=== PATIENT | male | born 1940 | race Caucasian/White ===

== ENCOUNTER 2020-04-10 04:00 | Inpatient (IN) | payer OTHER, BC, SELFPAY ==
[~2020-04-10] VITALS: Ht 170.2 cm; Wt 108.9 kg
[2020-04-10 04:12] VITALS: BP 132/74
--- NOTE | 2020-04-10 04:20 | NUR ---
79 Y/O M BIBA C/O SOB X 1 WEEK. RESPIRATIONS LABORED, PT ON 2L NC, 02 SAT 98%. PT STATES HE RECENTLY FELL X 3 DAYS AGO AND C/O 5/10 LEFT RIB PAIN. PT DENIES LOC, OR HITTING HEAD. LUNG SOUNDS DIMINISHED ALTHROUGHOUT. PT PRESENTS WITH MULTIPLE BRUISES ON UPPER AND LOWER EXTREMITIES. CAP REFILL <3 SECONDS. PT ALSO PRESENTS WITH NON-PITTING EDEMA ON UPPER EXTREMITIES. PT HAS 20G ON THE RAC PLACED BY EMS EN ROUTE. PT PLACED ON EMERGENCY VETERINARIAN. BED IN LOWEST POSITION, SIDE RAIL UP X 2. WILL CONTINUE TO MONITOR. MHX: CHF, COPD, DIABETES, CANCER, AFIB ALLERGIES: PCN, CODEINE, ZOFRAN
--- NOTE | 2020-04-10 04:25 | NUR ---
LABS AND BLOOD CULTURES OBTAINED AND WALKED OVER TO LAB.
[2020-04-10] MEDS ORDERED: NITROGLYCERIN 2% 1 GM PKT TP ONE (04:30)
[2020-04-10] MEDS ORDERED: FUROSEMIDE 40 MG/4 ML VIAL IVP ONE (04:30)
[2020-04-10] MEDS ORDERED: GLIP5TAB4 PO (04:32)
[2020-04-10] MEDS ORDERED: TAMS0.4C96 PO (04:32)
[2020-04-10] MEDS ORDERED: ACAL100C PO (04:32)
[2020-04-10] MEDS ORDERED: FURO-570 PO (04:32)
[2020-04-10] MEDS ORDERED: AMLO5TAB PO (04:32)
[2020-04-10] MEDS ORDERED: TRAV5SOL OP (04:32)
[2020-04-10] MEDS ORDERED: FLUT1BLS3 IH (04:32)
[2020-04-10] MEDS ORDERED: INSU100I7 SQ (04:32)
[2020-04-10] MEDS ORDERED: METO50TE2 PO (04:32)
--- NOTE | 2020-04-10 04:49 | NUR ---
G COMPLETED AND RESULTS REPORTED TO DR WONG PH 7.398 CO2 29.0 HCO3 17.5 BE -6.5 ON 3LNC
--- NOTE | 2020-04-10 04:51 | NUR ---
RAD AT BEDSIDE.
--- NOTE | 2020-04-10 05:24 | NUR ---
LAB CALLED FOR FOLLOW UP BLOOD RESULT.
[2020-04-10 05:33] LABS: BASOPHILS # (AUTO) 0.1 K/uL (0.00-0.22); BASOPHILS % (AUTO) 0.9 % (0.0-2.0); EOSINOPHILS # (AUTO) 0.2 K/uL (0-0.4); EOSINOPHILS % (AUTO) 2.4 % (0.0-4.0); HEMATOCRIT 23.9 % (36-52); HEMOGLOBIN 7.8 g/dL (12.0-18.0); LYMPHOCYTES # (AUTO) 3.3 K/uL (2.0-11.5); LYMPHOCYTES % (AUTO) 45.2 % (20.5-51.1); MEAN CORPUSCULAR HEMOGLOBIN 30 pg (27-31); MEAN CORPUSCULAR HGB CONC 33 g/dL (33-37); MEAN CORPUSCULAR VOLUME 93.8 fL (80-94); MONOCYTES # (AUTO) 0.6 K/uL (0.8-1.0); MONOCYTES % (AUTO) 7.6 % (1.7-9.3); NEUTROPHILS # (AUTO) 3.2 K/uL (1.8-7.7); NEUTROPHILS % (AUTO) 43.9 % (42.2-75.2); PLATELET COUNT (AUTO) 88 K/uL (140-450); RED BLOOD CELL COUNT(AUTO) 2.55 MIL/uL (4.20-6.10); RED CELL DISTRIBUTION WIDTH 17.4 % (11.6-13.7); WHITE BLOOD COUNT (AUTO) 7.4 K/uL (4.8-10.8)
--- NOTE | 2020-04-10 05:39 | NUR ---
UA OBTAINED THROUGH STRAIGHT CATH AND WALKED OVER TO LAB.
--- NOTE | 2020-04-10 05:40 | NUR ---
PT SITTING UPRIGHT IN BED, CONNECTED TO HOME DEPOT REP AT BEDSIDE. NO NEW C/O. PT O2 SAT AT 99% ON 2L NC. BED IN LOWEST POSITION, SIDE RAIL UP X2. WILL CONTINUE TO MONITOR.
[2020-04-10 05:48] LABS: PROTHROMBIN TIME 11.8 secs (10.8-13.4)
[2020-04-10 05:52] LABS: ALBUMIN 2.8 g/dL (3.4-5.0); ANION GAP 18.7 (8-16); ASPARTATE AMINOTRANSFERASE 17 U/L (15-37); CARBON DIOXIDE 21.8 mmol/L (21-32); CHLORIDE 99 mmol/L (98-107); GLUCOSE 183 mg/dL (74-106); POTASSIUM 4.5 mmol/L (3.5-5.1); SODIUM SERUM 135 mmol/L (136-145)
[2020-04-10 06:00] LABS: CREATININE 5.5 mg/dL (0.6-1.3); UREA NITROGEN, BLOOD 146 mg/dL (7-18)
--- NOTE | 2020-04-10 06:01 | NUR ---
RECEIVED CRITICAL REPORT FROM LAB, [facility], OF PT'S BUN [address] WONG MADE AWARE. PHYSICIAN TO SEE PT.
[2020-04-10] MEDS ORDERED: ASPIRIN 81 MG TAB.CHEW PO ONE (06:05)
--- NOTE | 2020-04-10 06:05 | NUR ---
RECEIVED CRITICAL LAB REPORT FROM [facility] ON PT'S TROPONIN 0.105. DR. WONG MADE AWARE. DR. WONG TO SEE PATIENT.
[2020-04-10] MEDS ORDERED: NITROGLYCERIN 0.4 MG TAB SL PRN (06:15)
[2020-04-10] MEDS: NACL 0.9% 1,000 ML IV SCH (06:15)
[2020-04-10] MEDS ORDERED: ONDANSETRON 4 MG/2 ML VIAL IM/IVP PRN (06:15)
[2020-04-10] MEDS ORDERED: BISACODYL 10 MG SUPP RC PRN (06:15)
[2020-04-10] MEDS ORDERED: ACETAMINOPHEN 325 MG TAB PO PRN (06:15)
[2020-04-10 06:22] LABS: BILIRUBIN,URINE NEGATIVE (NEGATIVE); BLOOD, URINE 1+ (NEGATIVE); COLOR,URINE YELLOW (YELLOW); LEUKOCYTE ESTERASE ,URINE NEGATIVE (NEGATIVE); NITRITE, URINE NEGATIVE (NEGATIVE); UGLUCOSE NEGATIVE (NEGATIVE)
--- NOTE | 2020-04-10 07:00 | NUR ---
COVID SWAB OBTAINED AND WALKED OVER TO LAB.
[2020-04-10] MEDS ORDERED: BISACODYL 10 MG SUPP RC SCH (07:15)
--- NOTE | 2020-04-10 07:22 | NUR ---
HOWARD PTS CALLED, INFORMED HER THAT PT WILL BE ADMITTED TO [facility] FLOOR, ROOM NUMBER [id number]
--- NOTE | 2020-04-10 07:37 | NUR ---
PT DENIES PAIN AT THIS TIME. STATES HE STILL FEELS SOB. PT CURRENTLY ON 2 L NC AT 98%
[2020-04-10 07:39] LABS: RBC,URINE 0-5 /HPF (0-5); URINE AMORPHOUS URATE 1+ /HPF (None Seen); WBC,URINE 0-5 /HPF (0-5)
[2020-04-10 07:40] LABS: APPEARANCE,URINE SLIGHTLY HAZY (CLEAR)
[2020-04-10 07:57] LABS: FREE T4 (FREE THYROXINE) 1.28 ng/dL (0.76-1.46); MAGNESIUM 2.5 mg/dL (1.8-2.4); PHOSPHORUS 3.6 mg/dL (2.5-4.9); THYROID STIMULATING HORMONE 4.19 uIU/mL (0.34-3.74)
[2020-04-10] MEDS ORDERED: DEXTROSE 50% 50 ML SYR IVP PRN (08:05)
[2020-04-10] MEDS ORDERED: METOCLOPRAMIDE 10 MG/2 ML INJ VIAL IVP PRN (08:05)
[2020-04-10] MEDS ORDERED: traMADol 50 MG TAB PO PRN (08:05)
[2020-04-10] MEDS ORDERED: PROCHLORPERAZINE 5 MG TAB PO PRN (08:05)
--- NOTE | 2020-04-10 08:15 | NUR ---
RECEIVED REPORT FROM ER NURSE RAYMOND. PT IN STABLE CONDITION ON 2L 02 VIA NC. RESPIRATIONS EVEN AND UNLABORED. COMPLAINING OF SOB. DENIES PAIN. IV SITE INTACT. PATIENT IS CONTINENT AND USES URINAL, IS A GOOD HISTORIAN AND KNOWS HIS PAST HISTORY. SKIN IS INTACT, WITH SMALL SCAB ON ARM, COVERED WITH BANDAID BY ER NURSE. VITAL SIGNS ARE STABLE. SAFETY MEASURES IN PLACE, BED IN LOWEST POSITION, CALL LIGHT WITHIN REACH. WILL CONTINUE TO MONITOR.
--- NOTE | 2020-04-10 08:20 | NUR ---
[facility]. Admited to TELE. Will go to room 126B. Belongings list completed. Report to JUAN ANTONIO JIMENEZ.
[2020-04-10] MEDS ORDERED: DULA1.5S SC (08:36)
[2020-04-10] MEDS ORDERED: COM5 PO (08:36)
[2020-04-10] MEDS ORDERED: TRAM50TA1 PO (08:36)
[2020-04-10] MEDS ORDERED: METO50TA21 PO (08:36)
[2020-04-10] MEDS ORDERED: ALBU0.0912 IH (08:36)
[2020-04-10] MEDS ORDERED: ZAR2.5 PO (08:36)
[2020-04-10] MEDS ORDERED: ACALABRUTINIB 100 MG PO SCH (09:00)
[2020-04-10] MEDS ORDERED: NON-FORMULARY ITEM (Fluticasone/Umeclidin/Vilanter (Trelegy Ellipta 100-62.5-25) 1 EACH) IH SCH (09:00)
--- NOTE | 2020-04-10 09:30 | NUR ---
SCHEDULED MEDICATIONS ADMINISTERED. PT TOLERATED WELL. WILL CONTINUE TO MONITOR
--- NOTE | 2020-04-10 10:05 | NUR ---
CHECKED ON PT. CURRENTLY ON 3L NC SPO2 97% HR 109. INCENTIVE SPIROMETER INSTRUCTED, PT UNDERSTANDS EXERCISE. PLACED BIPAP AT BEDSIDE FOR SOB. WILL CONTINUE TO MONITOR.
[2020-04-10] MEDS: TAMSULOSIN 0.4 MG CAP PO SCH (10:19)
[2020-04-10] MEDS: DOCUSATE SODIUM 100 MG GELCAP PO SCH ×2 (10:19→21:00)
[2020-04-10] MEDS: METOPROLOL 50 MG TAB PO SCH ×2 (10:20→21:00)
[2020-04-10] MEDS: amLODIPine 5 MG TAB PO SCH (10:20)
[2020-04-10] MEDS ORDERED: AZITHROMYCIN 250 MG TAB PO SCH (11:00)
--- NOTE | 2020-04-10 11:00 | NUR ---
PT PLACED ON BIPAP, BREATHING IS BETTER AND REPORTS LESS SOB. EFFORT MINIMIZED. 02 SAT 99%. WILL CONTINUE TO MONITOR
--- NOTE | 2020-04-10 11:10 | NUR ---
PLACED PT ON BIPAP AND ADMINISTERED MDI TX AT THIS TIME. BIPAP SETTINGS 12/5, 14RR, Ti 1.0, 32%. VENT SETTINGS PER DR. PRITCHETT, TITRATE NECESSARY TO ACHIEVE ADEQUATE VOLUMES. PT RECEIVING ADEQUATE VOLUMES AND ADEQUATE OXYGENATION. NO DISTRESS NOTED AT THIS TIME. BIPAP IS PLUGGED INTO RED OUTLET, ALARMS ARE ON AND FUNCTIONING. WILL CONTINUE TO MONITOR.
[2020-04-10] MEDS: ALBUTEROL HFA MDI 90 MCG/ACTUATION 8 GM INH PRN (11:11)
[2020-04-10] MEDS: BLOOD GLUCOSE MONITORING 1 DEV DEV FS SCH ×3 (11:30→21:00)
[2020-04-10 12:00] VITALS: BP 112/70
--- NOTE | 2020-04-10 12:30 | NUR ---
SCHEDULED MEDICATIONS ADMINISTERED. PT TOLERATED WELL. WILL CONTINUE TO MONITOR
--- NOTE | 2020-04-10 13:40 | NUR ---
DISCHARGE PLANNING: THIS IS A 79 Y/O MALE PATIENT FROM HOME, WHO WAS BIBA DUE TO SOB. PAST MEDICAL HISTORY INCLUDE MYELODYSPLASTIC ANEMIA, MANTLE CELL NON HODGKIN'S LYMPHOMA, COPD, CHF, DIABETES AND BASAL CELL CA. INITIAL DIAGNOSIS OF CHF AND ELEVATED TROPONIN. CURRENT LABS INCLUDE WBC 7.4, H/H 7.8/23.9, NA/K 135/4.5, BUN/CREA 146/5.5, ALB 2.8, TROP 1.105, BNP 2310. COVID PENDING. URNIE AND BLOOD CS PENDING. ON AZITHROMYCIN AND ROCEPHIN. CXR ON ADMISSION SHOWED MILD PULMONARY VASCULAR CONGESTION AND SMALL BILATERAL PLEURAL EFFUSIONS, BILATERAL LOWER LOBE INFILTRATES/ATELECTASIS. CHELSEA, NEPHRO, CARDIO AND PULMO CONSULTS IN PLACE. ON O2 AT 3 LPM/NC. DC PLAN PENDING ON PATIENT'S RESPONSE TO TREATMENT. Addendum: 04/12/20 at 1101 by Marline Ochoa CM DISCUSSED DURING BED HUDDLE. DC PLAN IF FOR WEDNESDAY TO [facility] PER 'S REQUEST. Addendum: 04/12/20 at 1143 by Marline Ochoa CM CONTACTED PATIENT'S HOWARD OSBORNE AT [phone] TO DISCUSS DC PLANNING AND IS IN AGREEMENT. SHE STATED DR. BLACKWELL SPOKE TO HER AND PLAN IS FOR EITHER WEDNESDAY OR WEDNESDAY. PER HOWARD SHE PREFERS [facility]. IMM LETTER DISCUSSED WELL, NO QUESTIONS AND CONCERNS BROUGHT UP AT THIS TIME. RECEIVED A CALL FROM GREG [phone] OF [facility], STATING THAT SHE RECEIVED A CALL FROM DR. FRAZIER TO SCHEDULE OP DIALYSIS APPOINTMENT. SHE PROVIDED ME WITH THE FAX NUMBER [phone] TO SEND REFERRAL. REFERRAL SENT. CONTACTED [facility] AT [phone], REQUESTED TO BE TRANSFERRED TO [facility]. ABLE TO SPEAK TO JOSE R, SHE STATED SHE HAVE NOT RECEIVE THE PACKET YET. SHE PROVIDED ME WITH ANOTHER FAX NUMBER [phone]. REFERRAL SENT TO THE PROVIDED NUMBER. WILL FOLLOW UP. Addendum: 04/12/20 at 1235 by Marline Ochoa RECEIVED A CALL FROM JOSE R OF ADMISSIONS, STATING THAT THEY MIGHT NOT BE ABLE TO PROVIDE TRANSPORT FROM AND TO DIALYSIS. CONTACTED PATIENT'S HOWARD IF IN CASE [facility] IS NOT ABLE TO PROVIDE TRANSPORT, IS SHE ABLE TO PROVIDE TRANSPORT FOR HER AND IS IN AGREEMENT. Addendum: 04/12/20 at 1336 by Marline Ochoa RECEIVED A CALL FROM JOSE R DURAND AT [facility] STATING THAT THEY ARE NOT ABLE TO ACCEPT PATIENT DUE TO THEY DO NOT HAVE AVAILABLE ROOMS. Addendum: 04/12/20 at 1411 by Marline Ochoa CONTACTED PATIENT'S HOWARD, MADE HER AWARE THAT [facility] IS NOT ABLE TO ACCEPT THE PATIENT. I ASKED HER IF SHE HAS ANY PREFERENCE. SHE STATED SHE PREFERS [facility] AND ASKED ME FOR ANY OTHER RECOMMENDATIONS BECAUSE SHE DOES NOT KNOW ANY SNF AROUND THE AREA. Addendum: 04/12/20 at 1539 by Marline Ochoa PROVIDED HER WITH THE LIST: [facility] AND [facility]. SHE STATED TO REACH OUT TO [facility] FIRST. CONTACTED [facility] AT [phone], NO ANSWER. LEFT VOICEMAIL. RECEIVED A CALL FROM PATIENT'S HOWARD AGAIN, STATING TO TRY [facility] [phone], INFORMED HER THAT THIS FACILITY IS NOT A JAIL BUT AN ASSISTED LIVING AND LONG-TERM. SHE LOOKED IT UP ON LINE AND SHE AGREED. SHE STATED TO TRY [facility], IF NOT [facility]. CONTRACTED [facility] - ABLE TO SPEAK TO [facility], SHE STATED THEY ARE NOT ACCEPTING ANY NEW PATIENTS AT THIS TIME, BECAUSE THEY ARE ON 14 DAY QUARANTINE DUE TO COVID, THEY CAN ONLY TAKE THEIR OWN PATIENTS BACK. PATIENT'S HOWARD MADE AWARE. SHE STATED TO TRY [facility]. I ASKED HER IF [facility] IS OK. SHE ANSWERED NO, THE RATING IS NOT THAT GOOD. PROVIDED HER WITH MORE OPTIONS, [facility] - TOO FAR FOR HER. [facility] - SHE SAID TO TRY. REFERRAL SENT TO [facility] AND [facility]. WILL FOLLOW UP Addendum: 04/12/20 at 1553 by Marline Ochoa CM PER SARA ABEL [facility], THEY WILL REVIEW REFERRAL AND WILL LET ME KNOW. CONTACTED MARIA DE JESUS OF [facility] AT [phone], NO ANSWER. LEFT MESSAGE. CONTACTED [facility] AT [phone], ABLE TO SPEAK TO RAJAN. REQUESTED TO GET TRANSFERRED TO [facility], ABLE TO SPEAK TO DUSTIN, SHE STATED WILL REVIEW THE REFERRAL AND WILL LET US KNOW. SHE ALSO STATED THAT [facility] [phone] WILL BE AVAILABLE THIS WEEKEND TO TAKE NEW REFERRALS. RECEIVED A CALL FROM SOCORRO MILLER , SALES REPRESENTATIVE [facility] CONFIRMING THAT THE ARE NOT ABLE TO ACCEPT NEW PATIENTS AT THIS TIME DUE TO BEING ON QUARANTIN. SHE STATED ONCE THEY GET 2 NEGATIVE RESULTS SHE WILL UPDATE US. Addendum: 04/12/20 at 1634 by Marline Ochoa CM PER GREG OF [facility], CHAIR TIME FOR PATIENT WILL BE M-W- AT 0850, HOWEVER NEED TO COME IN 30 MINS EARLIER ON THE FIRST DAY TO FILL OUT PAPERWORKS. SHE ALSO STATED TO INFORM THEM OF THE DC DATE, SO THEY CAN ADJUST THE SCHEDULE. I INFORMED HER THE HEP PANEL IS STILL PENDING AND SOON WE GET THE RESULTS WILL SEND IT OVER. PER GREG, SHE SPOKE TO THE PATIENT'S HOWARD TO INFORM HER. SHE PROVIDED ME OF THE WEEKEND CHARGE NURSE PRUDENCIO [phone] TO CONTACT IF THERE WILL BE ANY CHANGES. CONTACTED PATIENT'S HOWARD TO PROVIDE UPDATE REGARDING PLACEMENT AND DIALYSIS. SHE CONFIRMED THAT SHE HAVE SPOKEN TO GREG AND SHE IS AWARE OF THE SCHEDULE. SHE STATED [facility] AND [facility] ARE STILL REVIEWING THE REFERRAL AND WILL CALL US BACK ONCE THEY ARE ABLE TO ACCEPT. SHE STATED SHE PREFERS [facility], I INFORMED HER THAT I CANNOT GUARANTEE HER THAT [facility] CAN ACCEPT, IT WILL DEPEND ON THE BED AVAILABILITY AND IS IN AGREEMENT. Addendum: 04/13/20 at 3382 by Vanesa Chauhan CM --SPOKE WITH CAMERON AT [facility]. SHE SAID THAT SHE DID NOT SEE A FAX REGARDING PATIENT. I RE-FAXED PATIENTS CLINICALS TO [phone]. I WILL FOLLOW UP. Addendum: 04/13/20 at 5783 by Vanesa Chauhan CM SPOKE WITH ULICES AT [facility] [phone]. PATIENT HAS BEEN ACCEPT SHE PROVIDED ROOM # 111 D. NOTIFIED CHARGE NURSE PAULIE. I HAVE CALLED AND LEFT A VOICEMAIL FOR THE REGARDING THAT THE PATIENT HAS BEEN ACCEPTED TO [facility]. Addendum: 04/13/20 at 1453 by Vanesa Chauhan CM TRIED CONTACTIN THE AGAIN NO ANSWER. ULICES FROM [facility] WILL SET UP TRANSPORTATION AND CALL ME BACK WITH THE TIME OF TRANSPORTATION. Addendum: 04/13/20 at 1531 by Vanesa Chauhan CM PATIENT WILL NOT BE DISCHARGED UNTIL WEDNESDAY. TUNNELLED CATHETER WILL BE PLACED THIS EVENING. SPOKE TO SHE HAD MANY QUESTIONS AND CONCERNS REGARDING [facility]. I GAVE HER THE NUMBER FOR [facility] TO FOLLOW UP AND ASK ANY QUESTIONS SHE MAY HAVE. Addendum: 04/13/20 at 1628 by Vanesa Chauhan SPOKE WITH PATIENTS SHE AND HER ARE AGREEABLE UPON DISCHARGE FOR HIM TO BE TRANSFERRED TO [facility] Addendum: 04/15/20 at 1014 by Marline Ochoa RECEIVED A MESSAGE FROM LUIS A OF [facility] REQUESTING A CALL BACK AT [phone]. CONTACTED THE PROVIDED NUMBER, SPOKE TO LUIS A. INFORMED HER THAT I HAVE BEEN IN CONTACT WITH GREG FROM [facility] AND ALL PAPERWORKS HAVE BEEN FAXED TO THEM. AND PER GREG CHAIR TIME IS M-W-F AT 0850. INFORMED LUIS A THAT THE PATIENT IS SCHEDULED FOR TUNNELLED CATH PLACEMENT AT 1130 TODAY AND COVID NEGATIVE X2. PER LUIS A SHE WILL CONTACT GREG AT [facility] AND WILL PROCESS THE ADMISSION. SHE ALSO STATED THAT SHE WILL BE SENDING ME A CONFIRMATION OF THE CHAIR TIME. WILL FOLLOW UP. Addendum: 04/15/20 at 1023 by Marline Ochoa CM CONTACTED DUSTIN ADMISSION OF [facility], SHE STATED PATIENT WILL GO TO ROOM 106[address] UNDER DR. ZAIDI AND TRANSPORT CAN BE SET UP WITH [facility] AT [phone]. CONTACTED [facility] ABLE TO SPEAK TO ESTRELLA. WILL CALL TRANSPORT DONE. WILL FOLLOW UP. Addendum: 04/15/20 at 1040 by Marline Ochoa CM RECEIVED A CALL FROM LUIS A OF [facility], STATING THE SHE SPOKE TO [facility] THAT PATIENT IS SCHEDULED FOR FIRST DIALYSIS AT THE [facility] ON WEDNESDAY. SHE ALSO STATED THAT SHE FAXED OVER LETTER OF CONFIRMATION. PROVIDED HER WITH THE FAX NUMBER TO SEND IT. Addendum: 04/15/20 at 1607 by Marline Ochoa CM PER JUNIOR DIXON TO PR PATIENT. CONTACTED [facility], PER ESTRELLA ANGLE SHEARER WILL BE AT 1630. PATIENT'S HOWARD MADE AWARE. DUSTIN ADMISSIONS AT [facility] MADE AWARE. PER DUSTIN THEIR SW WILL BE ARRANGING TRANSPORT FOR THE PATIENT'S DIALYSIS. GREG OF [facility] MADE AWARE AND CONFIRMED CHAIR TIME M-W-F AT 0850. OPERATIVE REPORT, CXR AND DIALYSIS REPORT SENT TO [phone]. CONTACTED [facility] ADMISSION, ABLE TO SPEAK TO GUSTAVO. INFORMED HER THAT I HAVE NOT RECEIVE ANY SCHEDULE CONFIRMATION YET THAT LUIS A TOLD ME THAT SHE WILL BE SENDING OVER. PROVIDED HER THE FAX NUMBER AGAIN, SHE STATED SHE WILL GO AHEAD AND SEND IT AGAIN. I ALSO CONFIRMED WITH HER THAT I SPOKE TO GREG AND CHAIR TIME IS M-W-F AT 0850. WILL AWAIT FOR THE SCHEDULE CONFIRMATION.
--- NOTE | 2020-04-10 14:26 | NUR ---
GRADUATE STUDIES DEAN NOTE: CONCEPCION CONTACTED PATIENT TELEPHONICALLY [phone] AND CONTACTED PATIENT'S SIGNIFICANT OTHER KAIA PEREIRA [phone]. SW LEFT . SW WILL FOLLOW UP.
--- NOTE | 2020-04-10 15:03 | NUR ---
PT RESTING QUIETLY IN HIS ROOM ON HIS CELL PHONE. NO SIGNS OF DISTRESS NOTED. WILL CONTINUE TO MONITOR
--- NOTE | 2020-04-10 15:31 | NUR ---
PATIENT HAS BEEN SCREENED AND CATEGORIZED MODERATE NUTRITION RISK. PATIENT WILL BE SEEN WITHIN 3-5 DAYS OF ADMISSION. 04/12/20 04/14/[address]
[2020-04-10 16:00] VITALS: BP 101/55
--- NOTE | 2020-04-10 17:00 | NUR ---
PT IN BED RESTING QUIETLY. RESPIRATION EVEN BUT LABORED. RESPIRATORY EFFORT HAS IMPROVED ON BIPAP, NO LONGER COMPLAINING OF SOB. WILL CONTINUE TO MONITOR.
--- NOTE | 2020-04-10 17:07 | NUR ---
PT REMAINS ON BIPAP 09/28 14RR 32%. PT IS TOLERATING WELL AND INSISTS TO KEEP IT ON. NO DISTRESS NOTED AT THIS TIME. BIPAP PLUGGED INTO RED OUTLET, ALARMS ON AND FUNCTIONING.
--- NOTE | 2020-04-10 19:16 | NUR ---
ENDORSED PATIENT IN STABLE CONDITION TO SUBMARINE WORKER NURSE FOR CONTINUITY OF CARE.
[2020-04-10 19:21] LABS: BASOPHILS % (AUTO) 0.7 % (0.0-2.0); EOSINOPHILS # (AUTO) 0.1 K/uL (0-0.4); EOSINOPHILS % (AUTO) 1.4 % (0.0-4.0); HEMOGLOBIN 7.4 g/dL (12.0-18.0); LYMPHOCYTES # (AUTO) 2.7 K/uL (2.0-11.5); LYMPHOCYTES % (AUTO) 40.2 % (20.5-51.1); MEAN CORPUSCULAR HEMOGLOBIN 30 pg (27-31); MEAN CORPUSCULAR HGB CONC 32 g/dL (33-37); MEAN CORPUSCULAR VOLUME 94.1 fL (80-94); MONOCYTES # (AUTO) 0.5 K/uL (0.8-1.0); MONOCYTES % (AUTO) 7.8 % (1.7-9.3); NEUTROPHILS # (AUTO) 3.3 K/uL (1.8-7.7); NEUTROPHILS % (AUTO) 49.9 % (42.2-75.2); PLATELET COUNT (AUTO) 84 K/uL (140-450); RED BLOOD CELL COUNT(AUTO) 2.44 MIL/uL (4.20-6.10); RED CELL DISTRIBUTION WIDTH 17.6 % (11.6-13.7); WHITE BLOOD COUNT (AUTO) 6.6 K/uL (4.8-10.8)
[2020-04-10 19:59] LABS: ANION GAP 20.4 (8-16); CARBON DIOXIDE 19.4 mmol/L (21-32); CHLORIDE 100 mmol/L (98-107); GLUCOSE 253 mg/dL (74-106); POTASSIUM 4.8 mmol/L (3.5-5.1); SODIUM SERUM 135 mmol/L (136-145)
[2020-04-10 20:00] VITALS: BP 95/32
[2020-04-10] MEDS: BUMETANIDE 1 MG/4 ML VIAL IV SCH ×2 (20:00→22:21)
[2020-04-10] MEDS ORDERED: BUMETANIDE 1 MG/4 ML VIAL IV SCH ×2 (20:00→22:05)
[2020-04-10 20:01] LABS: CREATININE 5.9 mg/dL (0.6-1.3); UREA NITROGEN, BLOOD 149 mg/dL (7-18)
[2020-04-10] MEDS ORDERED: BUMETANIDE 1 MG/4 ML VIAL ONE ×2 (22:00)
[2020-04-10] MEDS: INSULIN LISPRO SLIDING SCALE 100 UNITS/ML VIAL SUBQ PRN (22:22)
--- NOTE | 2020-04-10 22:29 | NUR ---
INFORMED DR. BOBO ABOUT THE LOW SYSTOLIC BP OF PT - 90/46 - BUT INSPITE ON THIS HE SAID GIVE ONE DOSE OF BUMEX . PER DR. BOBO - DR OVERTON INFORMED THE HEMODIALYSIS NOT DONE DUE TO HD ACCESS YET . WILL CONT. TO MONITOR.
--- NOTE | 2020-04-10 22:32 | NUR ---
BUMEX GIVEN TIV OREDERD - WILL CONT. TO MONITOR - ON TELE MONITOR.
[2020-04-11] VITALS: BP 109/62
--- NOTE | 2020-04-11 | NUR ---
MADE ROUNDS , NO S/SX OF ACUTE DISTRESS NOTED AT THIS TIME.
--- NOTE | 2020-04-11 02:00 | NUR ---
MADE ROUNDS , NO S/SX OF ACUTE DISTRESS NOTED AT THIS TIME , WILL CONT. TO MONITOR . U.O - SCANTY - FOR KIDNEY US.
[2020-04-11 04:00] VITALS: BP 113/69
--- NOTE | 2020-04-11 04:00 | NUR ---
O2 SAT WNL - HR ON TRACING - 115 - REFER TO DR. BOBO . NO FURTHER ORDER MADE BUT STILL FOR CLOSELY WATCH .
[2020-04-11 05:42] LABS: BASOPHILS # (AUTO) 0.1 K/uL (0.00-0.22); BASOPHILS % (AUTO) 0.9 % (0.0-2.0); EOSINOPHILS # (AUTO) 0.3 K/uL (0-0.4); EOSINOPHILS % (AUTO) 3.5 % (0.0-4.0); HEMATOCRIT 24.6 % (36-52); HEMOGLOBIN 7.8 g/dL (12.0-18.0); LYMPHOCYTES # (AUTO) 2.2 K/uL (2.0-11.5); LYMPHOCYTES % (AUTO) 31.1 % (20.5-51.1); MEAN CORPUSCULAR HEMOGLOBIN 30 pg (27-31); MEAN CORPUSCULAR HGB CONC 32 g/dL (33-37); MEAN CORPUSCULAR VOLUME 95.7 fL (80-94); MONOCYTES # (AUTO) 0.8 K/uL (0.8-1.0); MONOCYTES % (AUTO) 10.8 % (1.7-9.3); NEUTROPHILS # (AUTO) 3.9 K/uL (1.8-7.7); NEUTROPHILS % (AUTO) 53.7 % (42.2-75.2); PLATELET COUNT (AUTO) 93 K/uL (140-450); RED BLOOD CELL COUNT(AUTO) 2.57 MIL/uL (4.20-6.10); RED CELL DISTRIBUTION WIDTH 17.8 % (11.6-13.7); WHITE BLOOD COUNT (AUTO) 7.2 K/uL (4.8-10.8)
--- NOTE | 2020-04-11 05:45 | NUR ---
REFER TO [facility]IG[facility] - HAD EPISODE OF AT [facility] - NO COMPLAIN MADE - RESTING ON BED COMFORTABLY .
--- NOTE | 2020-04-11 05:49 | NUR ---
SEEN BY DR BOBO - WILL WAIT FURTHER ORDER - INFORM HIM PT HAD SMALL AMOUNT OF URINE - BP 113/64 - LA 113 .
--- NOTE | 2020-04-11 06:00 | NUR ---
RESTING ON BED NO COMPLAIN MADE . WILL CONT. TO MONITOR,
[2020-04-11] MEDS: BLOOD GLUCOSE MONITORING 1 DEV DEV FS SCH ×4 (06:02→21:00)
[2020-04-11] MEDS: INSULIN LISPRO SLIDING SCALE 100 UNITS/ML VIAL SUBQ PRN ×3 (06:03→17:02)
[2020-04-11] MEDS: NACL 0.9% 1,000 ML IV SCH (06:15)
[2020-04-11 06:34] LABS: MAGNESIUM 2.6 mg/dL (1.8-2.4)
--- NOTE | 2020-04-11 07:30 | NUR ---
ENDORSED TO AM SHIFT - PT - STABLE .
--- NOTE | 2020-04-11 07:30 | NUR ---
RECEIVED REPORT FROM SLICING MACHINE OPERATOR RN, IVON, FOR CONTINUITY OF CARE. AAOX4, PT. IS SLEEPING AND IN BED. PT. VERBALIZES NO PAIN OR DISTRESS. RESPIRATIONS EVEN AND UNLABORED WITH 2LPM O2 VIA NC. IV SITE INTACT, ON RIGHT HAND 20G RUNNING NS AT TKO. PATIENT IS CONTINENT AND USES URINAL, IS A GOOD HISTORIAN AND KNOWS HIS PAST HISTORY. SKIN IS INTACT. SAFETY MEASURES IN PLACE, BED IN LOWEST POSITION, CALL LIGHT WITHIN REACH. POC DISCUSSED. WILL CONTINUE TO MONITOR.
--- NOTE | 2020-04-11 07:35 | NUR ---
FOUND PT OFF BIPAP AND ON 3L NC. NO DISTRESS NOTED AT THIS TIME. SPO2 99% HR 107 . PT STATED HE WOULD LIKE A BREAK FROM IT. WILL CONTINUE TO MONITOR PT FOR THE NEED TO PLACE BIPAP BACK ON.
[2020-04-11 07:52] LABS: ALBUMIN 2.8 g/dL (3.4-5.0); ANION GAP 21.9 (8-16); ASPARTATE AMINOTRANSFERASE 23 U/L (15-37); CHLORIDE 101 mmol/L (98-107); GLUCOSE 216 mg/dL (74-106); LACTATE DEHYDROGENASE 268 U/L (85-227); POTASSIUM 4.9 mmol/L (3.5-5.1); SODIUM SERUM 138 mmol/L (136-145); TOTAL BILIRUBIN 0.5 mg/dL (0.0-1.0)
[2020-04-11 07:57] LABS: CHOL/HDL RATIO 4.9 (1-4.5)
[2020-04-11 08:00] VITALS: BP 117/63
[2020-04-11 08:07] LABS: FOLIC ACID 19.3 ng/mL (>3.0)
[2020-04-11 08:22] LABS: CREATININE 6.1 mg/dL (0.6-1.3); UREA NITROGEN, BLOOD 166 mg/dL (7-18)
[2020-04-11] MEDS: DOCUSATE SODIUM 100 MG GELCAP PO SCH ×2 (08:38→23:57)
[2020-04-11] MEDS: TAMSULOSIN 0.4 MG CAP PO SCH (08:38)
[2020-04-11] MEDS: amLODIPine 5 MG TAB PO SCH (08:39)
[2020-04-11] MEDS: METOPROLOL 50 MG TAB PO SCH ×2 (08:39→21:00)
[2020-04-11] MEDS ORDERED: AZITHROMYCIN 250 MG TAB PO SCH (09:00)
[2020-04-11] MEDS ORDERED: BUMETANIDE 1 MG/4 ML VIAL IV ONE (09:00)
--- NOTE | 2020-04-11 09:15 | NUR ---
PT. SIGNED BOTH CONSENT FOR THORACENTESIS AND CVC PLACEMENT. PT. IS AWARE OF RISK AND BENEFITS. DR. BLACKWELL HAS SIGNED BOTH CONSENT. WILL CONTINUE TO MONITOR.
--- NOTE | 2020-04-11 09:35 | NUR ---
HELPED PT USE RESTROOM, SEEMED TO HAVE MILD SOB SO I PLACED PT BACK ON BIPAP AT THIS TIME. BIPAP PLUGGED INTO RED OUTLET, ALARMS ON AND FUNCTIONING. NO DISTRESS NOTED AT THIS TIME. WILL CONTINUE TO MONITOR.
[2020-04-11 12:00] VITALS: BP 109/61
[2020-04-11] MEDS: BUMETANIDE 1 MG/4 ML VIAL IV SCH ×3 (13:16→23:59)
--- NOTE | 2020-04-11 15:20 | NUR ---
ENDORSED PT. TO CHARGE NURSEHAYDEE. PT. IN STABLE CONDITION.
[2020-04-11 16:00] VITALS: BP 89/56
--- NOTE | 2020-04-11 16:40 | NUR ---
PT. REMOVED BIPAP MACHINE, STATES TO HAVING IMPROVED BREATHING. 2LPM O2 VIA NC PLACE ON PT, FOR SATURATION OF 92%. NO SIGNS OF DISTRESS NOTED. WILL CONTINUE TO MONITOR.
--- NOTE | 2020-04-11 17:00 | NUR ---
4 UNITS OF INSULIN GIVEN FOR BLOOD GLUCOSE OF 246. NO SIGNS OF DISTRESS NOTED. WILL CONTINUE TO MONITOR.
--- NOTE | 2020-04-11 17:03 | NUR ---
PT IS OFF BIPAP AT THIS TIME AND IS CURRENTLY ON 2L NC, TOLERATING WELL. SPO2 97% HR 91. NO DISTRESS NOTED AT THIS TIME.
--- NOTE | 2020-04-11 19:02 | NUR ---
DR. MARS BY THE BEDSIDE, GILBERT CATH PLACEMENT PROCEDURE BEGINNING. ULTRASOUND IS CALLED. WILL CONTINUE TO MONITOR.
--- NOTE | 2020-04-11 19:35 | NUR ---
ENDORSED TO CERTIFIED OPTICIAN RN, BARBARA, FOR CONTINUITY OF CARE. WILL CONTINUE TO MONITOR.
--- NOTE | 2020-04-11 19:36 | NUR ---
RECEIVED BEDSIDE ENDORSEMENT FROM AM SHIFT RN. PATIENT IS IN BED. ON 02 AT 2LPM VIA NC. TELE MONITOR ATTACHED. THE DARA CATH INSERTION WAS JUST FINISHED BY DR. MARS. NOTED RIGHT IEmelyJEmely RANDOLPHDARA CATH. DIALYSIS NURSE IS AT BEDSIDE. NO SOB. IV SITE AT RA GAUGE 18. INTACT. FALL RISK PROTOCOL IN PLACE. PLAN OF CARE WAS DISCUSSED. CALL LIGHT WITHIN REACH. WILL CONTINUE TO MONITOR.
[2020-04-11 20:00] VITALS: BP 108/57
--- NOTE | 2020-04-11 21:00 | NUR ---
ATTEMPTED TO PLACE PATIENT ON BIPAP AND HE REFUSED. PATIENT IS STABLE ON 2L NASAL CANNULA NO SHORTNESS OF BREATH. PATIENT IS GETTING DIALYSIS. DOCTOR NOTIFIED AND ADVISED THAT PATIENT CAN MAINTAIN ON NASAL CANNULA. RT WILL MONITOR PATIENT CLOSELY.
[2020-04-11 21:18] LABS: SPECIMENTYPE,BODY FLUID THORACENTESIS
[2020-04-11 21:19] LABS: APPEARANCE,SPUN,BODY FLUID TURBID (CLEAR); APPEARANCE,UNSPUN,BODY FLUID CLOUDY (CLEAR); COLOR,BODY FLUID RED (LT YELLOW)
[2020-04-11 21:20] LABS: TOTAL VOLUME,BODY FLUID 1050 mL
--- NOTE | 2020-04-11 21:24 | NUR ---
PATIENT IS CURRENTLY HAVING HEMODIALYSIS. NO SOB. DENIES PAIN.
--- NOTE | 2020-04-11 21:25 | NUR ---
WILL ADMINISTER MEDS AFTER DIALYSIS.
[2020-04-11 21:29] LABS: GLUCOSE,BODY FLUID 318 mg/dL
[2020-04-11 22:00] LABS: RBC, BODY FLUID 8468 /cu. mm.; WBC, BODY FLUID 0 /cu. mm.
--- NOTE | 2020-04-11 23:30 | NUR ---
DIALYSIS FINISHED WITH OUTPUT OF 2 LITERS. PATIENT IS SITTING IN BED. NO SOB. ON 02 AT 2LPM VIA NC. DENIES PAIN.
--- NOTE | 2020-04-11 23:57 | NUR ---
MEDS GIVEN AT THIS HOUR BECAUSE PATIENT JUST FINISHED WITH HIS DIALYSIS THAT STARTED AT AROUND 1999. BUMEX 2MG HELD DUE TO DECREASED BP 97/53. HR 67. AWARE. WILL CONTINUE TO MONITOR.
[2020-04-11] MEDS: DEXAMETHASONE 4 MG/ML VIAL IVP SCH (23:58)
[2020-04-12] VITALS: BP 95/53
[2020-04-12] MEDS: INSULIN LISPRO SLIDING SCALE 100 UNITS/ML VIAL SUBQ PRN ×4 (00:21→18:15)
--- NOTE | 2020-04-12 02:00 | NUR ---
PATIENT IS SITTING ON BED. DENIES PAIN. PUT BACK THE TELE MONITOR AND NASAL CANNULA. SECURED DRESSING OF THE RIGHT I.J. DARA CATH.CALL LIGHT WITHIN REACH. WILL CONTINUE TO MONITOR.
[2020-04-12 04:00] VITALS: BP 112/61
--- NOTE | 2020-04-12 04:00 | NUR ---
PATIENT IS AWAKE. NOT IN ANY DISTRESS.
[2020-04-12 05:33] LABS: BASOPHILS # (AUTO) 0.1 K/uL (0.00-0.22); BASOPHILS % (AUTO) 1.2 % (0.0-2.0); EOSINOPHILS % (AUTO) 0.5 % (0.0-4.0); HEMATOCRIT 24.2 % (36-52); LYMPHOCYTES % (AUTO) 28.3 % (20.5-51.1); MEAN CORPUSCULAR HEMOGLOBIN 31 pg (27-31); MEAN CORPUSCULAR HGB CONC 33 g/dL (33-37); MEAN CORPUSCULAR VOLUME 94.5 fL (80-94); MONOCYTES # (AUTO) 0.4 K/uL (0.8-1.0); MONOCYTES % (AUTO) 5.2 % (1.7-9.3); NEUTROPHILS # (AUTO) 4.6 K/uL (1.8-7.7); NEUTROPHILS % (AUTO) 64.8 % (42.2-75.2); PLATELET COUNT (AUTO) 95 K/uL (140-450); RED BLOOD CELL COUNT(AUTO) 2.56 MIL/uL (4.20-6.10); RED CELL DISTRIBUTION WIDTH 17.1 % (11.6-13.7); WHITE BLOOD COUNT (AUTO) 7.1 K/uL (4.8-10.8)
[2020-04-12] MEDS: BUMETANIDE 1 MG/4 ML VIAL IV SCH (05:55)
[2020-04-12] MEDS: BLOOD GLUCOSE MONITORING 1 DEV DEV FS SCH ×4 (06:04→20:20)
[2020-04-12] MEDS: NACL 0.9% 1,000 ML IV SCH (06:15)
[2020-04-12 06:16] LABS: MAGNESIUM 2.3 mg/dL (1.8-2.4); PHOSPHORUS 3.9 mg/dL (2.5-4.9)
[2020-04-12 07:13] LABS: POTASSIUM 4.5 mmol/L (3.5-5.1)
--- NOTE | 2020-04-12 07:30 | NUR ---
ASSISTED PT FROM BEDSIDE COMMODE TO BED, SAFELY WITH AM NURSE. BM X1 AND VOID X1. ENDORSED TO AM SHIFT RN FOR CONTINUITY OF CARE.
--- NOTE | 2020-04-12 07:31 | NUR ---
RECEIVED BEDSIDE REPORT FROM LACE MACHINE OPERATOR NURSE, FOR CONTINUITY OF CARE. PT IS A&OX4. RESPIRATIONS ARE MILDLY LABORED, BREATHING TO NC @ 2 LPM. SPO2: 98%. SKIN COLOR APPROPRIATE FOR ETHNICITY. RFA 18G IV IS PATENT AND INTACT, RUNNING ORDERED. ASSISTED PT FROM BEDSIDE COMMODE TO BED WITH LACE MACHINE OPERATOR NURSE. OUTPUT X1, BM X1. REVIEWED PLAN OF CARE WITH PT, WITH PT VERBALIZING UNDERSTANDING. SAFETY MEASURES IN PLACE; CALL LIGHT WITHIN REACH, BED IN LOW POSITION, SIGNS POSTED. TELE MONITOR ATTACHED. WILL CONTINUE TO MONITOR.
--- NOTE | 2020-04-12 07:48 | NUR ---
ATTEMPTED TO PLACE PT ON BIPAP PER REQUEST OF PT STATES HE VALDES NOT WANT TO WEAR BIPAP AT THIS TIME. PRN BREATHING TX ADMINISTERED. EXPLAINED BENEFITS OF BIPAP PT STILL REFUSED. WILL CONTINUE TO MONITOR.
[2020-04-12] MEDS: ALBUTEROL HFA MDI 90 MCG/ACTUATION 8 GM INH PRN (07:51)
[2020-04-12 08:00] VITALS: BP 106/50
[2020-04-12 08:03] LABS: ANION GAP 18.5 (8-16); CHLORIDE 99 mmol/L (98-107); GLUCOSE 265 mg/dL (74-106); SODIUM SERUM 136 mmol/L (136-145)
[2020-04-12 08:07] LABS: UREA NITROGEN, BLOOD 109 mg/dL (7-18)
[2020-04-12 08:09] LABS: CREATININE 5.2 mg/dL (0.6-1.3)
--- NOTE | 2020-04-12 08:09 | NUR ---
RECEIVED CALL FROM LAB REPORTING CRITICAL LAB RESULTS; CREATININE: 5.2, BUN:109. DR. BLACKWELL NOTIFIED OF LAB RESULTS. PER DR. BLACKWELL, DR. FRAZIER, THE DATA CENTER OPERATOR, WILL BE NOTIFIED OF RESULTS.
[2020-04-12] MEDS: amLODIPine 5 MG TAB PO SCH (09:00)
[2020-04-12] MEDS ORDERED: NON-FORMULARY ITEM (Insulin Glargine,Hum.rec.anlog (Basaglar Kwikpen U-100) 30 UNIT) SQ SCH (09:00)
[2020-04-12] MEDS ORDERED: ALBUTEROL SULFATE/IPRATROPIU 3 ML SOL IH PRN (10:10)
[2020-04-12] MEDS: INSULIN LANTUS 100 UNITS/ML 10 ML VIAL SUBQ SCH (10:30)
[2020-04-12] MEDS: DOCUSATE SODIUM 100 MG GELCAP PO SCH ×2 (10:34→21:16)
[2020-04-12] MEDS: VIT-B COMP/VIT-C/FOLIC ACID 1 TAB PO SCH (10:34)
[2020-04-12] MEDS: TAMSULOSIN 0.4 MG CAP PO SCH (10:35)
[2020-04-12] MEDS: DEXAMETHASONE 4 MG/ML VIAL IVP SCH ×2 (10:37→21:16)
--- NOTE | 2020-04-12 10:40 | NUR ---
SCHEDULED MEDICATIONS GIVEN. MEDICATION EDUCATION PROVIDED. PT TOLERATED PO MEDS WELL. BP: 105/60. PULSE: 110. WILL CONSULT DR BLACKWELL ON BP MEDICATION ADMINISTRATION. NO ACUTE DISTRESS NOTED. TELE MONITOR ATTACHED. SAFETY MEASURES IN PLACE. WILL CONTINUE TO MONITOR.
[2020-04-12 10:41] LABS: LACTATE DEHYDROGENASE 160 U/L (85-227)
[2020-04-12] MEDS: METOPROLOL 50 MG TAB PO SCH ×2 (10:49→21:16)
--- NOTE | 2020-04-12 10:50 | NUR ---
PER DR BLACKWELL, METOPROLOL WAS ADMINISTERED, AND AMLODIPINE WAS HELD, DUE TO LOW BP. WILL CONTINUE TO MONITOR.
[2020-04-12 12:00] VITALS: BP 88/51
--- NOTE | 2020-04-12 12:01 | NUR ---
HD NURSE, FLORENTINO, IS AT BEDSIDE PERFORMING HEMODIALYSIS.
--- NOTE | 2020-04-12 12:16 | NUR ---
HUMAN RESOURCES OPERATIONS SPECIALIST NOTE: Patient's Orientation Person Situation Place Time Land Leveler, Realtionship and Phone Number HOWARD OSBORNE [phone] Healthcare Power of Director Of Fundraising No Does Patient Have a POLST No Identifying Problems No Social Work Triggers Is A Social Work Consult Needed No Mandate Report Filed No Explanation Of Identifying Problems PATIENT IS A 79-YEAR-OLD MALE ADMITTED FOR CHF. PATIENT HAS PMHX OF MYELODYSPLASTIC ANEMIA, MANTLE CELL NON-HODGKIN'S LYMPHOMA, COPD, CHF, JAJA, DIABETES, BASAL CELL CARCINOMIA. Admitted From Home Pre-Admission Level Of Functioning Status Independent With DME Prior Resources/Services Used In Last 12 Months No Prior Resources Used Prior DME Walker Wheelchair Name And Phone Number of Dialysis Facility [facility] Dialysis Comments PATIENT IS A NEW DIALYSIS PATIENT. HOWARD KELLY WAS UNAWARE OF CHAIR TIME OR START DATE. Living Situation Lives With Family 2 Story House Patient Had Caregiver No Home Support No Caregiver Issues Financial Issues No Known Financial Issue Referral To The Financial Counselor Needed No Factors/Needs SNF/NH Placement Dialysis List Of Options Provided for Pt Choice [facility] Facility Discharge Plan Comments TENTATIVE DISCHARGE PL[facility] Status Initiated
--- NOTE | 2020-04-12 13:27 | NUR ---
COVID SPECIMEN #2 COLLECTED, AND TAKEN TO THE LAB.
--- NOTE | 2020-04-12 15:33 | NUR ---
PER DIALYSIS NURSE, [place], 2L REMOVED DURING DIALYSIS. NO ACUTE DISTRESS NOTED. SAFETY MEASURES IN PLACE. TELE MONITOR ATTACHED. WILL CONTINUE TO MONITOR.
[2020-04-12 16:00] VITALS: BP 102/51
--- NOTE | 2020-04-12 17:22 | NUR ---
ENDORSED TO SURGERY AID NURSE FOR CONTINUITY OF CARE. PT IS IN STABLE CONDITION.
--- NOTE | 2020-04-12 19:15 | NUR ---
RECEIVED PATIENT IN STABLE CONDITION FROM AM SHIFT NURSE FOR CONTINUITY OF CARE. RESPIRATIONS EVEN, UNLABORED. RT AT BEDSIDE ASSISTING PATIENT WITH CPAP. O2 SAT 96% AT THIS TIME. SKIN WARM, DRY. SALINE LOCK TO RIGHT FOREARM 18G PATENT/INTACT. RIGHT IJ DIALYSIS CATH NOTED WITH DRESSING INTACT. NO C/O PAIN. NO S/S ACUTE DISTRESS. SAFETY PRECAUTIONS IN PLACE. ISOLATION PRECAUTIONS OBSERVED BY ALL STAFF. CALL LIGHT WITHIN REACH AT ALL TIMES.
[2020-04-12 20:00] VITALS: BP 98/58
--- NOTE | 2020-04-12 21:26 | NUR ---
PATIENT RESTING COMFORTABLY IN BED. DUE MEDS GIVEN. HELD METOPROLOL DUE TO DECREASE IN BP 98/58. ALL OTHER NEEDS ANTICIPATED AND MET. CALL LIGHT WITHIN REACH.
--- NOTE | 2020-04-12 23:40 | NUR ---
MADE ROUNDS. PATIENT IS ASLEEP. NO S/S ACUTE DISTRESS. CALL LIGHT WITHIN REACH.
[2020-04-13] VITALS: BP 95/57
--- NOTE | 2020-04-13 01:28 | NUR ---
PATIENT AWAKE. ASSISTED WITH CPAP MACHINE. NO C/O PAIN. NO S/S ACUTE DISTRESS. CALL LIGHT WITHIN REACH. Addendum: 04/13/20 at 0150 by Jennifer Coleman RN AMEND: CPAP MACHINE TO BIPAP MACHINE.
--- NOTE | 2020-04-13 03:24 | NUR ---
PATIENT REFUSED TO WEAR BIPAP. RISKS AND BENEFITS EXPLAINED. PATIENT VERBALIZED UNDERSTANDING BUT CONTINUED TO REFUSE. PATIENT O2 SAT 97% ON 2L VIA NC. CALL LIGHT WITHIN REACH.
[2020-04-13 04:00] VITALS: BP 115/65
--- NOTE | 2020-04-13 05:19 | NUR ---
PATIENT AWAKE AND RESTING COMFORTABLY IN BED. NO C/O PAIN. NO S/S ACUTE DISTRESS. CALL LIGHT WITHIN REACH. SAFETY PRECAUTIONS IN PLACE. ISOLATION PRECAUTIONS OBSERVED BY ALL STAFF.
[2020-04-13] MEDS: INSULIN LISPRO SLIDING SCALE 100 UNITS/ML VIAL SUBQ PRN ×4 (05:54→22:05)
[2020-04-13] MEDS: NACL 0.9% 1,000 ML IV SCH (06:04)
[2020-04-13 06:37] LABS: BASOPHILS # (AUTO) 0.1 K/uL (0.00-0.22); BASOPHILS % (AUTO) 0.9 % (0.0-2.0); EOSINOPHILS % (AUTO) 0.2 % (0.0-4.0); HEMATOCRIT 22.7 % (36-52); HEMOGLOBIN 7.5 g/dL (12.0-18.0); LYMPHOCYTES # (AUTO) 2.4 K/uL (2.0-11.5); LYMPHOCYTES % (AUTO) 36.5 % (20.5-51.1); MEAN CORPUSCULAR HEMOGLOBIN 31 pg (27-31); MEAN CORPUSCULAR HGB CONC 33 g/dL (33-37); MEAN CORPUSCULAR VOLUME 93.6 fL (80-94); MONOCYTES # (AUTO) 0.6 K/uL (0.8-1.0); MONOCYTES % (AUTO) 9.9 % (1.7-9.3); NEUTROPHILS # (AUTO) 3.4 K/uL (1.8-7.7); NEUTROPHILS % (AUTO) 52.5 % (42.2-75.2); PLATELET COUNT (AUTO) 94 K/uL (140-450); RED BLOOD CELL COUNT(AUTO) 2.42 MIL/uL (4.20-6.10); RED CELL DISTRIBUTION WIDTH 17.2 % (11.6-13.7); WHITE BLOOD COUNT (AUTO) 6.5 K/uL (4.8-10.8)
[2020-04-13] MEDS: BLOOD GLUCOSE MONITORING 1 DEV DEV FS SCH ×4 (06:44→21:54)
[2020-04-13 07:11] LABS: HEPATITIS A ANTIBODY IGM Negative (Negative); HEPATITIS B CORE AB TOTAL Negative (Negative); HEPATITIS B SURFACE ANTIBODY Non Reactive (.); HEPATITIS B SURFACE ANTIGEN Negative (Negative)
--- NOTE | 2020-04-13 07:11 | NUR ---
RECEIVED BEDSIDE REPORT FROM HULL OUTFIT SUPERVISOR NURSE, FOR CONTINUITY OF CARE. PT IS A&OX4. RESPIRATIONS ARE EVEN AND UNLABORED, BREATHING TO NC @ 4LPM. SPO2: 98%. SKIN COLOR APPROPRIATE FOR ETHNICITY. RFA 18G IV IS PATENT AND INTACT, RUNNING ORDERED. ASSISTED PT FROM BEDSIDE COMMODE TO BED WITH HULL OUTFIT SUPERVISOR NURSE. BM. REVIEWED PLAN OF CARE WITH PT, WITH PT VERBALIZING UNDERSTANDING. SAFETY MEASURES IN PLACE; CALL LIGHT WITHIN REACH, BED IN LOW POSITION, SIGNS POSTED. TELE MONITOR ATTACHED. WILL CONTINUE TO MONITOR.
[2020-04-13 08:00] VITALS: BP 112/20
[2020-04-13 08:46] LABS: MAGNESIUM 2.1 mg/dL (1.8-2.4); PHOSPHORUS 4.6 mg/dL (2.5-4.9)
[2020-04-13 08:48] LABS: ANION GAP 16.7 (8-16); CARBON DIOXIDE 27.2 mmol/L (21-32); CHLORIDE 101 mmol/L (98-107); GLUCOSE 197 mg/dL (74-106); POTASSIUM 3.9 mmol/L (3.5-5.1); SODIUM SERUM 141 mmol/L (136-145); UREA NITROGEN, BLOOD 79 mg/dL (7-18)
[2020-04-13 08:49] LABS: CREATININE 4.8 mg/dL (0.6-1.3)
--- NOTE | 2020-04-13 08:49 | NUR ---
RECEIVED A CALL FROM LAB REPORTING CRITICAL LAB VALUES; CREATININE: 4.8, BUN: 79. LAB RESULTS REPORTED TO DR. RIVAS. PT TO HAVE DIALYSIS TODAY.
[2020-04-13] MEDS: METOPROLOL 50 MG TAB PO SCH ×2 (09:00→22:01)
[2020-04-13] MEDS: amLODIPine 5 MG TAB PO SCH (09:00)
[2020-04-13] MEDS ORDERED: METOCLOPRAMIDE 10 MG/2 ML INJ VIAL IVP PRN (09:55)
[2020-04-13] MEDS: DOCUSATE SODIUM 100 MG GELCAP PO SCH ×2 (09:58→22:00)
[2020-04-13] MEDS: TAMSULOSIN 0.4 MG CAP PO SCH (10:05)
[2020-04-13] MEDS: DEXAMETHASONE 4 MG/ML VIAL IVP SCH ×2 (10:10→22:01)
[2020-04-13] MEDS: VIT-B COMP/VIT-C/FOLIC ACID 1 TAB PO SCH (10:11)
[2020-04-13] MEDS: INSULIN LANTUS 100 UNITS/ML 10 ML VIAL SUBQ SCH (10:14)
--- NOTE | 2020-04-13 10:25 | NUR ---
SCHEDULED MEDICATIONS GIVEN. BP MEDS HELD PENDING DIALYSIS SCHEDULED FOR TODAY. PT TOLERATED PO MEDS WELL. PRN ANTI--NAUSEA MEDICATION GIVEN FOR PT COMPLAINTS OF NAUSEA. MEDICATION EDUCATION PROVIDED. NO DISTRESS NOTED. TELE MONITOR ATTACHED. WILL CONTINUE TO MONITOR.
--- NOTE | 2020-04-13 11:49 | NUR ---
PT'S BLOOD SUGAR CHECKED; BGL; 169. 2 UNITS INSULIN COVERAGE PROVIDED. SCHEDULED IVPB ANTIBIOTIC HUNG, AND RUNNING PER ORDERS. MEDICATION EDUCATION PROVIDED. NO DISTRESS NOTED. TELE MONITOR ATTACHED. WILL CONTINUE TO MONITOR.
[2020-04-13 12:00] VITALS: BP 110/60
[2020-04-13] MEDS ORDERED: EPOETIN ALFA 10,000 UNITS/ML VIAL SUBQ SCH (13:15)
[2020-04-13 16:00] VITALS: BP 133/66
--- NOTE | 2020-04-13 16:49 | NUR ---
ASSISTED THE ELECTRONIC PUBLICATIONS SPECIALIST TO HELP THE PATIENT BACK TO BED. PT COMPLAINED OF ITCHING, PRN BENADRYL GIVEN. BLOOD SUGAR CHECKED. BGL: 309, INSULIN COVERAGE GIVEN.
[2020-04-13] MEDS: ALBUTEROL HFA MDI 90 MCG/ACTUATION 8 GM INH PRN (17:20)
--- NOTE | 2020-04-13 19:20 | NUR ---
SPOKE WITH DIALYSIS NURSE FLORENTINO, REGARDING PT'S DIALYSIS. DIALYSIS FOR PT HAS NOT BEEN ORDERED. INFORMED DR LUNDBERG OF ORDERED EPOETIN ALPHA ORDER; NO ROUTE OF ADMINISTRATION SPECIFIED FOR EPOGEN. PER DR LUDNBERG, THE EPOGEN CAN BE HELD FOR NOW.
--- NOTE | 2020-04-13 19:24 | NUR ---
ENDORSED TO METAL FURNITURE ASSEMBLY SUPERVISOR NURSE FOR CONTINUITY OF CARE. PT IS IN STABLE CONDITION.
--- NOTE | 2020-04-13 19:25 | NUR ---
RECEIVED BEDSIDE REPORT FROM AM SHIFT NURSE. PATIENT IS LYING IN BED, RESTING WITH EYES CLOSED. NO SOB OR DISTRESS NOTED. ON 4LPM VIA NASAL CANNULA. PATIENT NOTED WITH RIGHT FOREARM 18 GAUGE, PATENT AND INTACT. PATIENT NOTED WITH RIGHT IJ DARA CATHETER. INITIAL ASSESSMENT DONE, SKIN IS INTACT. BED IN LOW, BED LOCKED. SAFETY MEASURES IN PLACE. CALL LIGHT WITHIN PATIENT REACH. WILL CONTINUE TO MONITOR PATIENT.
--- NOTE | 2020-04-13 21:57 | NUR ---
PATIENT HAS A BP OF 107/[address] LUNDBERG SAID ITS OKAY TO GIVE METOPROLOL. WILL CONTINUE TO MONITOR PATIENT.
--- NOTE | 2020-04-13 21:58 | NUR ---
PATIENT HAS BLOOD GLUCOSE OF 202 WITH 4 UNITS OF REGULAR HUMALOG INSULIN ADMINISTERED.
[2020-04-14 00:15] VITALS: BP 100/54
--- NOTE | 2020-04-14 00:15 | NUR ---
VITALS DONE. PATIENT RESTING WITH EYES CLOSED. NO SOB OR DISTRESS NOTED. CALL LIGHT WITHIN PATIENT REACH. WILL CONTINUE TO MONITOR PATIENT.
--- NOTE | 2020-04-14 01:37 | NUR ---
PT REFUSED BIPAP. PRN TX ADMINISTERED. PT IS IN NO DISTRESS. WILL CONT TO MONITOR
--- NOTE | 2020-04-14 03:14 | NUR ---
ROUNDS DONE. PATIENT RESTING WITH EYES CLOSED. VISIBLE CHEST RISE AND FALL NOTED. CALL LIGHT WITHIN PATIENT REACH. WILL CONTINUE TO MONITOR PATIENT.
[2020-04-14 06:29] LABS: BASOPHILS % (AUTO) 0.4 % (0.0-2.0); EOSINOPHILS % (AUTO) 0.3 % (0.0-4.0); HEMATOCRIT 22.8 % (36-52); HEMOGLOBIN 7.4 g/dL (12.0-18.0); LYMPHOCYTES # (AUTO) 2.6 K/uL (2.0-11.5); LYMPHOCYTES % (AUTO) 39.3 % (20.5-51.1); MEAN CORPUSCULAR HEMOGLOBIN 31 pg (27-31); MEAN CORPUSCULAR HGB CONC 33 g/dL (33-37); MEAN CORPUSCULAR VOLUME 94.3 fL (80-94); MONOCYTES # (AUTO) 0.8 K/uL (0.8-1.0); MONOCYTES % (AUTO) 11.5 % (1.7-9.3); NEUTROPHILS # (AUTO) 3.2 K/uL (1.8-7.7); NEUTROPHILS % (AUTO) 48.5 % (42.2-75.2); PLATELET COUNT (AUTO) 91 K/uL (140-450); RED BLOOD CELL COUNT(AUTO) 2.42 MIL/uL (4.20-6.10); WHITE BLOOD COUNT (AUTO) 6.7 K/uL (4.8-10.8)
[2020-04-14] MEDS: NACL 0.9% 1,000 ML IV SCH (06:29)
[2020-04-14] MEDS: BLOOD GLUCOSE MONITORING 1 DEV DEV FS SCH ×4 (06:34→21:49)
[2020-04-14] MEDS: INSULIN LISPRO SLIDING SCALE 100 UNITS/ML VIAL SUBQ PRN ×4 (06:35→22:00)
--- NOTE | 2020-04-14 06:37 | NUR ---
PATIENT HAD A BLOOD GLUCOSE RESULT OF 230 WITH 4 UNITS OF REGULAR HUMALOG INSULIN GIVEN. WILL CONTINUE TO MONITOR PATIENT.
--- NOTE | 2020-04-14 06:43 | NUR ---
PATIENT IN STABLE CONDITION.. NO DISTRESS NOTED. CALL LIGHT WITHIN PATIENT REACH. WILL ENDORSE TO AM SHIFT NURSE FOR CONTINUITY OF CARE.
[2020-04-14 06:57] LABS: CARBON DIOXIDE 25.3 mmol/L (21-32); CHLORIDE 99 mmol/L (98-107); GLUCOSE 224 mg/dL (74-106); POTASSIUM 4.3 mmol/L (3.5-5.1); SODIUM SERUM 135 mmol/L (136-145)
--- NOTE | 2020-04-14 07:20 | NUR ---
RECEIVED PATIENT FROM NIGHT NURSE. PATIENT IS AWAKE AND ALERT. RESP EVEN AND UNLABORED ON 4L NC. NO NOTED DISTRESS AT THIS TIME. LIANA DIAMOND NOTED, RFA 18 WITH NS 10ML. PLAN OF CARE DISCUSSED PATIENT VERBALIZED UNDERSTANDING. CALL LIGHT WITHIN REACH, BED IN LOW POSITION. WILL CONTINUE TO MONITOR.
[2020-04-14 08:00] VITALS: BP 104/50
[2020-04-14 08:15] LABS: UREA NITROGEN, BLOOD 100 mg/dL (7-18)
[2020-04-14] MEDS: METOPROLOL 50 MG TAB PO SCH ×2 (08:58→21:48)
[2020-04-14] MEDS: DEXAMETHASONE 4 MG/ML VIAL IVP SCH ×2 (08:58→21:37)
[2020-04-14] MEDS: DOCUSATE SODIUM 100 MG GELCAP PO SCH ×2 (08:58→21:48)
[2020-04-14] MEDS: VIT-B COMP/VIT-C/FOLIC ACID 1 TAB PO SCH (08:59)
[2020-04-14] MEDS: TAMSULOSIN 0.4 MG CAP PO SCH (09:00)
[2020-04-14] MEDS: INSULIN LANTUS 100 UNITS/ML 10 ML VIAL SUBQ SCH (09:03)
--- NOTE | 2020-04-14 09:10 | NUR ---
MORNING ROUTINE MEDICATIONS GIVEN. BP 104/[address] RIVAS MADE AWARE. RECEIVED ORDER TO HOLD FLOMAX. PATIENT C/O ITCHY AND WAS GIVEN BENADRYL PRN. PATIENT TOLERATED WELL. WILL CONTINUE TO MONITOR.
--- NOTE | 2020-04-14 10:50 | NUR ---
BP REASSESSED AT 100/64 HR 85. GIVEN NORVASC PO PER DR PICKENS.
[2020-04-14] MEDS: amLODIPine 5 MG TAB PO SCH (10:58)
--- NOTE | 2020-04-14 11:30 | NUR ---
DR IMELDA MOLINA SPOKE TO PATIENT ABOUT A TUNNELED DIALYSIS CATHETER PLACEMENT FOR 04/15/20. DR SEGURA ASKED TO HAVE HD DONE BEFORE GOING TO THE OR TOMORROW. DIALYSIS NURSE NOTIFIED. CONSENT OBTAINED.
--- NOTE | 2020-04-14 11:32 | NUR ---
04/14/20 RD INITIAL ASSESSMENT COMPLETED PLEASE REFER TO NUTRITION ASSESSMENT UNDER CARE ACTIVITY FOR ESTIMATED NUTRITIONAL NEEDS. 1. RECOMMEND RENAL, 60 GM CCHO DIET 2. RECOMMEND NEPRO BID FOR INCREASED CALORIE INTAKE 3. RECOMMEND DIET EDUCATION ON DIABETIC AND RENAL DIET 4. RD TO FOLLOW-UP 3-5 DAYS, MODERATE RISK DONALD DANIEL RD
--- NOTE | 2020-04-14 15:40 | NUR ---
DR FRAZIER PAGED ABOUT HD ORDER PLACED FOR TOMORROW AT 0900. WAITING FOR CALL BACK.
[2020-04-14 16:00] VITALS: BP 113/65
--- NOTE | 2020-04-14 18:02 | NUR ---
PATIENT IS COMPLAINING OF ITCHING. BENADRYL PRN BID ISN'T DUE. SPOKE TO DR RIVAS AND OK TO GIVE THE NEXT PRN DOSE NOW. ORDER CARRIED OUT.
--- NOTE | 2020-04-14 19:00 | NUR ---
HD COMPLETE. 2.6L OUTPUT. PATIENT IN STABLE CONDITION.
--- NOTE | 2020-04-14 19:10 | NUR ---
ENDORSED PATIENT TO NIGHT NURSE. PATIENT IN STABLE CONDITION
--- NOTE | 2020-04-14 19:11 | NUR ---
RECD. SITTING ON THE BED, AWAKE, A/OX3, WITH FORGETFULNESS. IV OF NS AT 10 ML/HR INFUSING, RIGHT FOREARM G18. DIALYSIS LINE AT THE RIGHT IJ DARA CATH INTACT. WITH SKIN DISCOLORATION ON BILATERAL UPPER EXTREMITIES. SAFETY MEASURES ENFORCED. BED IN THE LOWEST POSITION, CALL LIGHT IN REACH. PLAN OF CARE DISCUSSED. NEEDS REINFORCEMENT. DENIES PAIN 0/10.
--- NOTE | 2020-04-14 19:30 | NUR ---
Patient's Plan of Care was discussed and reviewed with UTILITY CLERK: DUY RINALDI
[2020-04-14 20:00] VITALS: BP 134/65
--- NOTE | 2020-04-14 20:35 | NUR ---
PT SEEN AND ASSESSED. FOUND PT ON ROOM AIR WITH SPO2 OF 96%. CLEAR/DIMINISHED BREATH SOUNDS ON AUSCULTATION. PT IS IN NO APPARENT RESPIRATORY DISTRESS AT THIS TIME. PRN TX NOT INDICATED AT THIS MOMENT. STAND-BY BiPAP FOR PRN. WILL CONTINUE TO MONITOR PT.
--- NOTE | 2020-04-14 20:48 | NUR ---
DUE PO MEDICATIONS GIVEN, ATE 100% OF SNACK.
--- NOTE | 2020-04-14 21:05 | NUR ---
CONFUSED TOOK OUT HIS IV LINE. NEW IV LINE INSERTED AT THE RIGHT WRIST G22.
[2020-04-15] VITALS: BP 94/48
--- NOTE | 2020-04-15 | NUR ---
SITTING ON BED, CONFUSED. TRYING TO GET OUT OF BED. REORIENTED TO HOSPITAL SETTING.
--- NOTE | 2020-04-15 00:15 | NUR ---
WITH ITCHINESS, KEEP ON SCRATCHING HIS BODY, MEDICATED WITH BENADRYL PER MD ORDER.
--- NOTE | 2020-04-15 01:00 | NUR ---
TOOK OFF HIS GOWN, WITH CONFUSION.
[2020-04-15] MEDS ORDERED: OLANZapine 5 MG ODT PO ONE (01:05)
--- NOTE | 2020-04-15 01:05 | NUR ---
PT REFUSED TO USED BiPAP. PT IN NO APPARENT RESPIRATORY DISTRESS AT THIS TIME.
--- NOTE | 2020-04-15 01:15 | NUR ---
NO ITCHINESS NOTED, RESTING IN BED.
--- NOTE | 2020-04-15 03:00 | NUR ---
SLEEPING COMFORTABLY IN BED.
[2020-04-15] MEDS: NACL 0.9% 1,000 ML IV SCH (06:15)
[2020-04-15] MEDS: BLOOD GLUCOSE MONITORING 1 DEV DEV FS SCH ×2 (06:29→11:59)
[2020-04-15] MEDS: INSULIN LISPRO SLIDING SCALE 100 UNITS/ML VIAL SUBQ PRN ×2 (06:30→11:45)
[2020-04-15 06:47] LABS: BASOPHILS # (AUTO) 0.1 K/uL (0.00-0.22); BASOPHILS % (AUTO) 0.7 % (0.0-2.0); EOSINOPHILS % (AUTO) 0.3 % (0.0-4.0); HEMATOCRIT 22.5 % (36-52); HEMOGLOBIN 7.4 g/dL (12.0-18.0); LYMPHOCYTES # (AUTO) 4.5 K/uL (2.0-11.5); MEAN CORPUSCULAR HEMOGLOBIN 31 pg (27-31); MEAN CORPUSCULAR HGB CONC 33 g/dL (33-37); MEAN CORPUSCULAR VOLUME 93.8 fL (80-94); MONOCYTES # (AUTO) 0.4 K/uL (0.8-1.0); MONOCYTES % (AUTO) 4.5 % (1.7-9.3); NEUTROPHILS # (AUTO) 3.8 K/uL (1.8-7.7); NEUTROPHILS % (AUTO) 43.5 % (42.2-75.2); PLATELET COUNT (AUTO) 89 K/uL (140-450); RED CELL DISTRIBUTION WIDTH 16.9 % (11.6-13.7); WHITE BLOOD COUNT (AUTO) 8.8 K/uL (4.8-10.8)
--- NOTE | 2020-04-15 06:48 | NUR ---
SITTING ON BED, WOKE UP EARLY. CONDITION REMAIN STABLE. WILL ENDORSE TO AM SHIFT NURSE FOR CONTINUITY OF CARE.
[2020-04-15 07:08] LABS: ANION GAP 17.1 (8-16); CARBON DIOXIDE 25.9 mmol/L (21-32); CHLORIDE 99 mmol/L (98-107); GLUCOSE 193 mg/dL (74-106); SODIUM SERUM 138 mmol/L (136-145)
[2020-04-15 07:15] LABS: UREA NITROGEN, BLOOD 72 mg/dL (7-18)
--- NOTE | 2020-04-15 07:50 | NUR ---
POC REVIEWED, TUNNEL HD CATH TO BE PLACED TODAY, CONSENT REVIEWED WITH PATIENT, PT CONFIRMS SIGNATURE ON CONSENT IS HIS.
[2020-04-15 08:00] VITALS: BP 105/89
--- NOTE | 2020-04-15 08:45 | NUR ---
DR SEGURA AT BEDSIDE, SCHEDULED FOR CATH PLACEMENT TODAY AT 1200
--- NOTE | 2020-04-15 08:48 | NUR ---
DR FRAZIER AT BEDSIDE, DIALYSIS ORDER CLARIFIED, DIALYSIS WAS DONE YESTERDAY FOR ORDER TODAY BECAUSE PT IS SCHEDULED FOR CATH PLACEMENT TODAY
[2020-04-15] MEDS: DOCUSATE SODIUM 100 MG GELCAP PO SCH (09:00)
[2020-04-15] MEDS: VIT-B COMP/VIT-C/FOLIC ACID 1 TAB PO SCH (09:00)
[2020-04-15] MEDS: TAMSULOSIN 0.4 MG CAP PO SCH (09:00)
[2020-04-15] MEDS: amLODIPine 5 MG TAB PO SCH (09:00)
[2020-04-15] MEDS: METOPROLOL 50 MG TAB PO SCH (09:00)
[2020-04-15] MEDS ORDERED: EPOETIN ALFA 10,000 UNITS/ML VIAL SUBQ SCH (09:30)
--- NOTE | 2020-04-15 10:02 | NUR ---
PT ASSISTED TO SIT IN CHAIR. CALL ROY WITHIN REACH, PT INSTRUCTED TO CALL FOR HELP BEFORE GETTING UP.
[2020-04-15] MEDS: DEXAMETHASONE 4 MG/ML VIAL IVP SCH (10:19)
[2020-04-15] MEDS: INSULIN LANTUS 100 UNITS/ML 10 ML VIAL SUBQ SCH (10:25)
--- NOTE | 2020-04-15 10:38 | NUR ---
PHYSICAL THERAPY AT BEDSIDE
--- NOTE | 2020-04-15 11:48 | NUR ---
PT TO OR FOR TUNNEL CATH PLACEMENT
[2020-04-15] MEDS ORDERED: LIDOCAINE 1% 500 MG/50 ML VIAL ONE (11:52)
[2020-04-15] MEDS ORDERED: BUPIVACAINE-MPF 0.25% 30 ML VIAL INJ ONE (11:54)
[2020-04-15] MEDS ORDERED: MIDAZOLAM 2 MG/2 ML VIAL ONE (12:09)
[2020-04-15] MEDS ORDERED: fentaNYL 0.05 MG/ML VIAL ONE (12:09)
--- NOTE | 2020-04-15 14:45 | NUR ---
PT RETURNED FROM PACU, S/P TUNNEL CATH PLACEMENT, PT AWAKE, SPEAKS CLEARLY, DENIES PAIN, SMALL AMT OF BLOOD UNDER DRESING BUT NO ACTIVE BLEEDING NOTED AT CATH SITE. VITALS STABLE.
[2020-04-15 14:50] VITALS: BP 110/68
[2020-04-15 15:20] VITALS: BP 108/72
--- NOTE | 2020-04-15 15:30 | NUR ---
DR FRAZIER PAGED AND CALLED BACK, NOTIFIED OF DC PLAN TODAY, OUTPT DIALYSIS SCHEDULED FOR WEDNESDAY, OK TO WAIT UNTIL WEDNESDAY FOR NEXT DIALYSIS PER DR FRAZIER
[2020-04-15 16:00] VITALS: BP 97/57
--- NOTE | 2020-04-15 16:33 | NUR ---
REPORT CALLED TO NAIN AT [facility] [phone], JOSEP [phone] CALLED TO NOTIFY OF TRANSFER
--- NOTE | 2020-04-15 16:50 | NUR ---
PT PICKED UP BY [id number], PT LEFT WITH ALL HIS BELONGINGS INCLUDING FLIP PHONE AND DRY CLEANER HELPER.
== END 2020-04-15 16:50 | DRG 673 ==
LOC: MED 04:00 → EEVIPCON 04:00 → MMU 06:30
PROVIDERS: ADMIT General Practice; ATTEND General Practice
PROC: 5A09357 Assistance with Respiratory Ventilation, Less than 24 Consecutive Hours, Continuous Positive Airway Pressure (ICD-10-PCS; principal; 2020-04-10)
PROC: 5A09357 Assistance with Respiratory Ventilation, Less than 24 Consecutive Hours, Continuous Positive Airway Pressure (ICD-10-PCS; 2020-04-11)
PROC: 02HV33Z Insertion of Infusion Device into Superior Vena Cava, Percutaneous Approach (ICD-10-PCS; 2020-04-11)
PROC: B548ZZA Ultrasonography of Superior Vena Cava, Guidance (ICD-10-PCS; 2020-04-11)
PROC: 5A1D70Z Performance of Urinary Filtration, Intermittent, Less than 6 Hours Per Day (ICD-10-PCS; 2020-04-11)
PROC: 0W993ZZ Drainage of Right Pleural Cavity, Percutaneous Approach (ICD-10-PCS; 2020-04-12)
PROC: 5A1D70Z Performance of Urinary Filtration, Intermittent, Less than 6 Hours Per Day (ICD-10-PCS; 2020-04-12)
PROC: 0JH63XZ Insertion of Tunneled Vascular Access Device into Chest Subcutaneous Tissue and Fascia, Percutaneous Approach (ICD-10-PCS; 2020-04-15)
PROC: 02HV33Z Insertion of Infusion Device into Superior Vena Cava, Percutaneous Approach (ICD-10-PCS; 2020-04-15)
PROC: B548ZZA Ultrasonography of Superior Vena Cava, Guidance (ICD-10-PCS; 2020-04-15)
PROC: B5181ZA Fluoroscopy of Superior Vena Cava using Low Osmolar Contrast, Guidance (ICD-10-PCS; 2020-04-15)
PROC: 5A1D70Z Performance of Urinary Filtration, Intermittent, Less than 6 Hours Per Day (ICD-10-PCS; 2020-04-15)
DX: N17.0 Acute kidney failure with tubular necrosis (principal); I21.A1 Myocardial infarction type 2; I50.43 Acute on chronic combined systolic (congestive) and diastolic (congestive) heart failure; J18.9 Pneumonia, unspecified organism; J96.01 Acute respiratory failure with hypoxia; E43 Unspecified severe protein-calorie malnutrition; R65.10 Systemic inflammatory response syndrome (SIRS) of non-infectious origin without acute organ dysfunction; J98.11 Atelectasis; J44.1 Chronic obstructive pulmonary disease with (acute) exacerbation; I42.9 Cardiomyopathy, unspecified; I13.0 Hypertensive heart and chronic kidney disease with heart failure and stage 1 through stage 4 chronic kidney disease, or unspecified chronic kidney disease; E87.2 Acidosis; C85.90 Non-Hodgkin lymphoma, unspecified, unspecified site; E87.1 Hypo-osmolality and hyponatremia; J91.8 Pleural effusion in other conditions classified elsewhere; J44.0 Chronic obstructive pulmonary disease with (acute) lower respiratory infection; N18.4 Chronic kidney disease, stage 4 (severe); M19.90 Unspecified osteoarthritis, unspecified site; I25.10 Atherosclerotic heart disease of native coronary artery without angina pectoris; E87.5 Hyperkalemia; E83.51 Hypocalcemia; E11.22 Type 2 diabetes mellitus with diabetic chronic kidney disease; D46.9 Myelodysplastic syndrome, unspecified; I48.91 Unspecified atrial fibrillation; E66.01 Morbid (severe) obesity due to excess calories; E02 Subclinical iodine-deficiency hypothyroidism; E83.41 Hypermagnesemia; D69.6 Thrombocytopenia, unspecified; G47.33 Obstructive sleep apnea (adult) (pediatric); I35.0 Nonrheumatic aortic (valve) stenosis; T45.1X5A Adverse effect of antineoplastic and immunosuppressive drugs, initial encounter; Z96.653 Presence of artificial knee joint, bilateral; Z99.2 Dependence on renal dialysis; Z90.49 Acquired absence of other specified parts of digestive tract; Z88.5 Allergy status to narcotic agent; Z88.0 Allergy status to penicillin; Z87.891 Personal history of nicotine dependence; Z85.828 Personal history of other malignant neoplasm of skin; Z68.37 Body mass index [BMI] 37.0-37.9, adult; Z88.8 Allergy status to other drugs, medicaments and biological substances; Z79.899 Other long term (current) drug therapy; Z03.818 Encounter for observation for suspected exposure to other biological agents ruled out; Y92.89 Other specified places as the place of occurrence of the external cause
CPT/HCPCS: 36415; 71045; 76604; 76770; 76942; 80048; 80053; 81001; 82550; 82607; 82728; 82746; 82803; 82945; 82948; 83036; 83540; 83605; 83615; 83735; 83880; 84100; 84134; 84157; 84439; 84443; 84484; 85025; 85045; 85379; 85610; 85651; 85730; 86140; 86704; 86706; 86708; 86709; 86803; 86886; 86900; 86901; 86920; 87040; 87070; 87075; 87081; 87086; 87102; 87205; 87340; 88104; 89051; 93005; 93970; 93971; 94640; 94660; 96374; 97110; 97116; 97161-GP; 97530; 99291; C1750; J0696; J0885; J1100; J1644; J1815; J1940; J2001; J2250; J2765; J3010; J3490; J3535; J7030; J7042; J7060; Q0092; Q0163; Q0164; U0003-CS